=== PATIENT | female | born 1990 | race Caucasian/White ===

== ENCOUNTER 2022-06-10 10:41 | Emergency (ER) | payer BC ==
[~2022-06-10] VITALS: Ht 160 cm; Wt 100.0 kg
[2022-06-10 10:56] VITALS: BP 123/93
[2022-06-10] MEDS ORDERED: BENZ1LOZ73 MT ×3 (13:27→13:28)
[2022-06-10] MEDS ORDERED: ACET-2708 MT (13:27)
== END 2022-06-10 13:43 | disposition home or self-care (01) ==
LOC: ER 10:41
DX: J02.9 Acute pharyngitis, unspecified (principal)
CPT/HCPCS: 87070; 87430; 99283

== ENCOUNTER 2023-08-26 14:57 | Emergency (ER) | payer BC ==
[~2023-08-26] VITALS: Ht 177.8 cm; Wt 104.0 kg
[~2023-08-26 14:57] MED LIST: ACET-2708 MT; BENZ1LOZ73 MT
[2023-08-26 15:08] VITALS: TEMP 98.5; O2SAT 100
[2023-08-26 16:02] LABS: CLARITY URINE TURBID (CLEAR); COLOR URINE YELLOW (YELLOW); GLUCOSE URINE NEGATIVE (NEGATIVE); KETONES URINE NEGATIVE (NEGATIVE); LEUKOCYTE ESTERASE URINE 3+ (NEGATIVE); NITRITE URINE NEGATIVE (NEGATIVE); OCCULT BLOOD URINE NEGATIVE (NEGATIVE); PH URINE 7.5 (4.5-8.0); PROTEIN URINE NEGATIVE (NEGATIVE); SPECIFIC GRAVITY URINE 1.019 (1.005-1.030); UROBILINOGEN URINE 0.2 E.U./dL (0.2-1.0)
[2023-08-26 16:36] LABS: BASOPHILS % 0.6 % (0.0-2.0); EOSINOPHILS % 2.7 % (0.0-5.0); HEMATOCRIT. 43.8 % (36.0-48.0); HEMOGLOBIN. 14.8 g/dL (12.0-16.0); LYMPHOCYTES % 23.7 % (20.0-50.0); MEAN CORPUSCULAR HEMOGLOBIN 32.2 pg (28.0-32.0); MEAN CORPUSCULAR HGB CONC 33.7 g/dL (31.0-37.0); MEAN CORPUSCULAR VOLUME 95.6 fL (81.0-99.0); MEAN PLATELET VOLUME 7.3 fl (7.4-10.4); PLATELET 388 x1000/uL (130-400); RED BLOOD CELL COUNT 4.59 mill/uL (4.2-5.4); RED CELL DISTRIBUTION WIDTH 15.6 % (11.6-14.6); WHITE BLOOD COUNT 7.3 x1000/uL (4.5-11.0)
[2023-08-26 16:42] LABS: CHLORIDE 103 mEq/L (98-107); POTASSIUM 4.1 mEq/L (3.5-5.1); SODIUM 138 mEq/L (136-145)
[2023-08-26 16:43] LABS: CARBON DIOXIDE 29 mEq/L (21-32)
[2023-08-26 16:44] LABS: CALCIUM 9.7 mg/dL (8.7-10.4)
[2023-08-26 16:48] LABS: CREATININE 0.9 mg/dL (0.6-1.0); GLUCOSE 119 mg/dL (70-105)
[2023-08-26 16:49] LABS: UREA NITROGEN BLOOD 8 mg/dL (9-23)
[2023-08-26 16:50] LABS: ALANINE AMINOTRANSFERASE 19 IU/L (10-49); ALBUMIN 4.3 g/dL (3.2-4.8); ASPARTATE AMINOTRANSFERASE 18 IU/L (<34)
[2023-08-26 16:51] LABS: BILIRUBIN DIRECT < 0.1 mg/dL (<=3.0); BILIRUBIN TOTAL 0.2 mg/dL (0.1-1.0); PROTEIN TOTAL 7.3 g/dL (6.0-8.3)
[2023-08-26 16:53] LABS: BACTERIA URINE 2+; RBC URINE 0-2 /hpf (0-2); SQUAMOUS EPITHELIAL CELL URINE 1+ /lpf (RARE/1+)
[2023-08-26 17:07] LABS: HCG SCREEN NEGATIVE
[2023-08-26 18:00] VITALS: BP 166/114; PULSE 97; RESP 20
[2023-08-26] MEDS: ONDANSETRON HCL 4MG/2ML INJ IV ONE (18:00)
[2023-08-26] MEDS: KETOROLAC 30MG/ML VIAL IV ONE (18:00)
== END 2023-08-26 22:16 | disposition left against medical advice (07) ==
LOC: ER 14:57
DX: K80.80 Other cholelithiasis without obstruction (principal); F41.9 Anxiety disorder, unspecified
CPT/HCPCS: 99285; 96374; 76705; 96375; 80076; 80048; 81003; 81025; 84703; 83690; 85025; 36415; J1885; J2405